=== PATIENT | female | born 1940 | race African-American/Black ===

== ENCOUNTER 2018-12-28 18:51 | Emergency (ER) | payer OTHER ==
--- NOTE | 2018-12-28 19:00 | PDOC ---
Rapid Medical Evaluation Time Seen by Provider: 12/28/18 18:53 Medical Evaluation: 12/28/18 18:57 CC: chest and upper abdominal pain x3 days PE: epigastric and LUQ tenderness Orders: cardiac w/u Patient to proceed to ER for evaluation. Discharge Disposition - Diagnosis Epigastric pain - Referrals - Patient Instructions - Post Discharge Activity
[2018-12-28 19:09] VITALS: BMI 25.0
--- NOTE | 2018-12-28 20:03 | PDOC ---
Attending Attestation - Resident Resident Name: Bassem Schmidtth - ED Attending Attestation I have performed the following: I have examined & evaluated the patient, The case was reviewed & discussed with the resident, I agree w/resident's findings & plan - HPI HPI: 12/29/18 02:10 see resident hpi - Physicial Exam PE: 12/29/18 02:10 agree with resident exam - Medical Decision Making 12/29/18 02:10 78 yo female with b/l flank pain labs and CT suggest UTI, possible early pylonephritis rocephin given in ED, d/c with keflex daughter at bedside also given instructions to return for fever, vomiting, other gibbons follow up with pcp
[2018-12-28] MEDS ORDERED: FAMOTIDINE 20 MG/50 ML IVPB 20 MG/50 ML MG IVPB ONE ×2 (20:21→20:38)
[2018-12-28] MEDS ORDERED: ACETAMINOPHEN 1000 MG/100 ML VIAL (NON FORMULARY) IVPB ONE (20:21)
[2018-12-28] MEDS ORDERED: SODIUM CHLORIDE 1,000 ML IV STA (20:21)
[2018-12-28] MEDS ORDERED: ONDANSETRON 4 MG/2 ML VIAL IVPUSH ONE (20:21)
--- NOTE | 2018-12-28 20:23 | PDOC ---
History of Present Illness - General Chief Complaint: Pain, Acute Stated Complaint: CHEST PAIN Time Seen by Provider: 12/28/18 18:53 Past History - Past Medical History Allergies/Adverse Reactions: Allergies Allergy/AdvReac Type Severity Reaction Status Date / Time No Known Allergies Allergy Verified 12/28/18 19:06 Home Medications: Ambulatory Orders Amlodipine Besylate [Norvasc -] 10 mg .ROUTE DAILY 12/28/18 Amlodipine Besylate [Norvasc -] 10 mg PO DAILY 12/28/18 Atorvastatin Calcium [Lipitor] 20 mg PO DAILY 12/28/18 Insulin (Levemir) [Levemir Vial] 8 unit SQ DAILY 12/28/18 Lisinopril [Prinivil] 10 mg PO DAILY 12/28/18 metFORMIN HCL [Glucophage -] 850 mg PO DAILY 12/28/18 Cephalexin [Keflex] 500 mg PO BID #10 capsule 12/29/18 COPD: No Diabetes: Yes GI Disorders: Yes (gastritis) HTN: Yes - Psycho Social/Smoking Cessation Hx Smoking History: Never smoked Information on smoking cessation initiated: No Hx Alcohol Use: No Drug/Substance Use Hx: No *Physical Exam - Vital Signs Last Vital Signs Temp Pulse Resp BP Pulse Ox 97.9 F 69 22 H 130/70 98 12/28/18 19:00 12/28/18 19:00 12/28/18 19:00 12/28/18 19:00 12/28/18 19:00 ED Treatment Course - LABORATORY CBC & Chemistry Diagram: 12/28/18 21:05 12/28/18 21:05 Medical Decision Making - Medical Decision Making HPI: 78yo F with PMH of HTN, DM, gastritis, uterine prolapse presenting with pain since yesterday. When asked where her pain is, she points to her bilateral lower ribs. Patient's daughter is at the bedside providing collateral history. The daughter states this pain is consistent with patient's gastritis. Patient was taken off omeprazole one month ago upon instructions from her physician. She had an endoscopy/colonoscopy in August which were "normal." Patient was given maalox and tylenol yesterday with relief, but did not have relief today. Had an episode of diarrhea yesterday and a normal formed brown stool without blood today. Endorsing some nausea, but no vomiting. Eating makes her pain worse. Has had dysuria since Thursday. No hemoptysis, no recent surgical history, no recent immobilization, no hormone use, no history of DVT or PE. No fevers or chills. PCP: Dr. Zheng (spelling? in [place]) ROS: Constitutional: no fever, no chills HEENT: no throat pain, no dysphagia Cardiovascular: +bilateral lower rib pain, no palpitations Respiratory: no cough, no shortness of breath Gastrointestinal: +abdominal pain, +nausea Genitourinary: +dysuria, no hematuria Musculoskeletal: no myalgia, no arthralgia Skin: no rash, no itching Neurologic: no headache, no weakness PE: General: Awake, alert, and fully oriented, moaning in pain Head: No signs of trauma Eyes: EOMI, sclera anicteric ENT: Moist mucus membranes Neck: Normal ROM, supple Lungs: Lungs clear, Normal breath sounds Cardio: Regular rhythm, S1 and S2 present Abdomen: Tender to palpation in epigastrium. Soft. +guarding. Surgical scar present at umbilicus. +CVA tenderness bilaterally Extremities: Normal range of motion, Distal pulses present SKIN: Warm, Dry, normal turgor Neurologic: Cranial nerves II through XII grossly intact. Normal speech ED Course/MDM: DDX including but not limited to gastritis, UTI/ pyelonephritis, ACS, PE, pancreatitis, gastroenteritis, nephrolithiasis Labs, EKG, Xray Pepcid, Zofran, Fluids, Ofirmev EKG: rate 53, QTc 367, sinus bradycardia, flattened t waves in inferior distribution, no previous EKGs 12/28/18 20:22 CXR as read by radiology: "2 views of the chest were submitted. There are no prior studies for comparison. There is a large heart, unfolded aorta, elevated right hemidiaphragm, degenerative changes and some minimal atelectasis at the left base. There is some wedging of vertebral bodies. There are no prior studies for comparison. Correlation recommended. " 12/28/18 20:35 CTAP, as ready by imaging polymerization helper: "FINDINGS: Lung bases are clear other than mild basilar ateclectasis. The visualized cardiac chambers are normal size and configuration. There are punctate bilateral renal stones and/or vascular calcifications of hydronephrosis or perinephric inflammation. Normal unenhanced liver, gallbladder, pancreas, spleen, adrenal glands . The stomach and abdominal small and large bowel are normal. There is no aortic aneurysm. There is no significant retroperitoneal lymphadenopathy. Small fat-containing umbilical hernia is noted. The pelvic small and large bowel are normal. The appendix is normal. The uterus and adnexal structures are normal. Urinary bladder is unremarkable. There is no pelvic free fluid. No discrete pelvic lymphadenopathy is identified. Bilateral calcified gluteal injection granulomas in the IMPRESSION: No definite evidence of acute pathology. Punctate bilateral nonobstructing renal stones and/or vascular calcifications." 12/29/18 00:10 Keflex sent to pharmacy GI referral as patient recently moved from [place] and does not have a GI specialist here Discharged with return precautions Discharge - Discharge Information Problems reviewed: Yes Clinical Impression/Diagnosis: Epigastric pain Disposition: HOME - Additional Discharge Information Prescriptions: Cephalexin [Keflex] 500 mg PO BID #10 capsule - Follow up/Referral Referrals: Wesley Mak DO [Staff Physician] - - Patient Discharge Instructions Patient Printed Discharge Instructions: DI for Urinary Tract Infection (UTI) Additional Instructions: You came into the emergency department for abdominal pain. Labs did not indicate acute pathology. CT scan did not indicate acute pathology. Urinalysis showed that you have a urinary tract infection. Prescription sent to your pharmacy. Take as instructed. Make sure you drink plenty of water to keep well hydrated. You can take [id number] tylenol as needed for pain. Follow the instructions on the medication bottle. You have been referred to a GI specialist for further evaluation of your pain. Call and make an appointment at the number provided. Your workup is not complete until you do so. Follow-up with a primary care provider within 72 hours to discuss this ED visit and to further evaluate your symptoms. Your workup is not complete until you do so. Call and make an appointment at the number provided. Immediate medical attention is required if you develop: worsening pain, high fevers, persistent nausea, vomiting, or any new or concerning symptoms. If you think you are having an emergency, call for emergency medical services or present to the emergency department right away. - Post Discharge Activity
[2018-12-28] MEDS ORDERED: ACETAMINOPHEN INJECTION 100 ML IVPB ONE (20:37)
[2018-12-28] MEDS ORDERED: ONDANSETRON 4 MG/2 ML VIAL ONE (20:37)
[2018-12-28 20:54] LABS: EPI CELLS 8.3 /HPF (0-5/HPF); HYALINE CASTS 4 /lpf (0-8); URINE APPEARANCE CLEAR; URINE BACTERIA 567.7 /hpf (NEGATIVE); URINE BILIRUBIN NEGATIVE (NEGATIVE); URINE COLOR YELLOW; URINE GLUCOSE (UA) TRACE (NEGATIVE); URINE KETONE NEGATIVE (NEGATIVE); URINE LEUK ESTERASE TRACE (NEGATIVE); URINE NITRITE NEGATIVE (NEGATIVE); URINE PROTEIN NEGATIVE (NEGATIVE); URINE RBC 1 /hpf (0-4); URINE UROBILINOGEN 0.2 mg/dL (0.2-1.0); URINE WBC 3 /hpf (0-5)
[2018-12-28 21:18] LABS: BASO % 0.5 % (0-2.0); EOS % 0.9 % (0-4.5); HEMATOCRIT 41.1 % (32.4-45.2); LYMPH % 54.5 % (8-40); MCH 25.6 pg (25.7-33.7); MCHC 31.7 g/dl (32.0-36.0); MEAN CELL VOLUME 80.7 fl (80-96); MEAN PLT VOLUME 9.3 fl (7.5-11.1); MONO % 8.8 % (3.8-10.2); NEUT % 35.3 % (42.8-82.8); PLATELET COUNT 188 K/MM3 (134-434); RDW 15.9 % (11.6-15.6); WHITE BLOOD COUNT 6.6 K/mm3 (4.0-10.0)
[2018-12-28 21:57] LABS: INR 0.94 (0.83-1.09); PROTHROMBIN TIME (PATIENT) 11.1 SEC (9.7-13.0)
[2018-12-28 21:58] LABS: ALBUMIN 3.8 g/dl (3.4-5.0); BILIRUBIN,TOTAL 0.4 mg/dL (0.2-1); CALCIUM 9.4 mg/dL (8.5-10.1); CREATININE 0.8 mg/dL (0.55-1.3); POTASSIUM 4.4 mmol/L (3.5-5.1); TOT PROT 7.3 g/dl (6.4-8.2)
[2018-12-28] MEDS ORDERED: CEFTRIAXONE 1,000 MG in DEXTROSE 5%-WATER - 50 ML IVPB ONE (22:43)
[2018-12-28] MEDS ORDERED: CEFTRIAXONE 1 GM/50 ML BAG ONE (23:01)
[2018-12-29 01:11] VITALS: BP 125/63; PULSE 59; TEMP 98.6
--- NOTE | 2018-12-29 11:31 | EKG ---
Test Reason : Blood Pressure : / mmHG Vent. Rate : 053 BPM Atrial Rate : 053 BPM P-R Int : 176 ms QRS Dur : 080 ms QT Int : 392 ms P-R-T Axes : 061 020 170 degrees QTc Int : 367 ms SINUS BRADYCARDIA T WAVE ABNORMALITY, CONSIDER LATERAL ISCHEMIA ABNORMAL ECG NO PREVIOUS ECGS AVAILABLE Confirmed by SERGE DAVIS, OMARI ([id number]) on 12/29/2018 11:31:04 AM Referred By: Confirmed By:OMARI VALENTINE MD
== END 2018-12-29 01:20 | disposition home or self-care (01) ==
LOC: JER 18:51
PROC: 3E03329 Introduction of Other Anti-infective into Peripheral Vein, Percutaneous Approach (ICD-10-PCS; principal; 2018-12-28)
PROC: 3E033GC Introduction of Other Therapeutic Substance into Peripheral Vein, Percutaneous Approach (ICD-10-PCS; 2018-12-28)
PROC: 3E0337Z Introduction of Electrolytic and Water Balance Substance into Peripheral Vein, Percutaneous Approach (ICD-10-PCS; 2018-12-28)
DX: R10.13 Epigastric pain (principal); I10 Essential (primary) hypertension; E11.9 Type 2 diabetes mellitus without complications; N81.4 Uterovaginal prolapse, unspecified
CPT/HCPCS: 36415; 71046-TC-FY; 74176-TC; 80053; 81003; 82550; 83690; 83735; 84484; 85025; 85610; 93005; 93010; 96361; 96365; 96375; 99284-25; J0131; J7030

== ENCOUNTER 2021-10-08 16:04 | Emergency (ER) | payer OTHER ==
[2021-10-08 16:36] VITALS: TEMP 98.4; BMI 25.2
[2021-10-08] MEDS ORDERED: FAMOTIDINE 20 MG/50 ML IVPB 20 MG/50 ML MG IVPB ONE ×2 (18:32→19:17)
[2021-10-08] MEDS ORDERED: MAG HYDROX/AL HYDROX/SIMETH 30 ML UNIT-DOSE CUP PO ONE (18:47)
[2021-10-08] MEDS ORDERED: ACETAMINOPHEN 1000 MG/100 ML BAG IVPB ONE (19:05)
[2021-10-08] MEDS ORDERED: MAG HYDROX/AL HYDROX/SIMETH 30 ML UNIT-DOSE CUP ONE (19:17)
[2021-10-08] MEDS ORDERED: ACETAMINOPHEN INJECTION 100 ML IVPB ONE (19:17)
[2021-10-08 19:23] LABS: BASO % 0.6 % (0-2.0); EOS % 1.2 % (0-4.5); HEMATOCRIT 40.4 % (32.4-45.2); HEMOGLOBIN 12.6 GM/dL (10.7-15.3); MCH 24.4 pg (25.7-33.7); MCHC 31.2 g/dl (32.0-36.0); MEAN CELL VOLUME 78.2 fl (80-96); MEAN PLT VOLUME 8.8 fl (7.5-11.1); MONO % 11.2 % (3.8-10.2); PLATELET COUNT 292 10^3/uL (134-434); RBC 5.17 M/mm3 (3.60-5.2); RDW 16.6 % (11.6-15.6); WHITE BLOOD COUNT 7.5 K/mm3 (4.0-10.0)
[2021-10-08 19:50] LABS: ALBUMIN 3.7 g/dl (3.4-5.0); BLOOD UREA NITROGEN 15.8 mg/dL (7-18); CALCIUM 9.5 mg/dL (8.5-10.1)
[2021-10-08 19:52] LABS: CREATININE 0.7 mg/dL (0.55-1.3)
[2021-10-08 19:54] LABS: BILIRUBIN,TOTAL 0.4 mg/dL (0.2-1)
[2021-10-08 23:25] VITALS: BP 136/71; PULSE 53
== END 2021-10-08 23:25 | disposition home or self-care (01) ==
LOC: JER 16:04
PROC: 3E033GC Introduction of Other Therapeutic Substance into Peripheral Vein, Percutaneous Approach (ICD-10-PCS; principal; 2021-10-08)
DX: R10.84 Generalized abdominal pain (principal); K21.9 Gastro-esophageal reflux disease without esophagitis
CPT/HCPCS: 36415; 76705-TC; 80053; 83690; 84484; 85025; 93005; 93010; 99285-25

== ENCOUNTER 2021-12-06 19:30 | Inpatient (IN) | payer OTHER ==
[2021-12-06] MEDS ORDERED: ACETAMINOPHEN 1000 MG/100 ML BAG IVPB ONE (20:44)
[2021-12-06] MEDS ORDERED: MAG HYDROX/AL HYDROX/SIMETH -MYLANTA- ORAL SUSPENSION PO ONE (20:44)
[2021-12-06] MEDS ORDERED: FAMOTIDINE 20 MG/50 ML IVPB 20 MG/50 ML MG IVPB ONE ×2 (20:44→21:20)
[2021-12-06] MEDS ORDERED: ACETAMINOPHEN INJECTION 100 ML IVPB ONE (21:19)
[2021-12-06 21:42] LABS: BASO % 0.6 % (0-2.0); EOS % 1.5 % (0-4.5); HEMATOCRIT 38.1 % (32.4-45.2); HEMOGLOBIN 12.4 GM/dL (10.7-15.3); LYMPH % 49.9 % (8-40); MCHC 32.5 g/dl (32.0-36.0); MEAN CELL VOLUME 76.9 fl (80-96); MEAN PLT VOLUME 8.3 fl (7.5-11.1); MONO % 11.3 % (3.8-10.2); NEUT % 36.7 % (42.8-82.8); PLATELET COUNT 213 10^3/uL (134-434); RBC 4.95 M/mm3 (3.60-5.2); RDW 17.9 % (11.6-15.6); WHITE BLOOD COUNT 6.1 K/mm3 (4.0-10.0)
[2021-12-06 22:02] LABS: ALBUMIN 3.3 g/dl (3.4-5.0); BLOOD UREA NITROGEN 16.3 mg/dL (7-18); CALCIUM 9.2 mg/dL (8.5-10.1)
[2021-12-06 22:05] LABS: CREATININE 0.7 mg/dL (0.55-1.3)
[2021-12-06] MEDS ORDERED: MAG HYDROX/AL HYDROX/SIMETH 30 ML UNIT-DOSE CUP ONE (22:05)
[2021-12-06 22:07] LABS: BILIRUBIN,TOTAL 0.3 mg/dL (0.2-1); TOT PROT 7.2 g/dl (6.4-8.2)
[2021-12-06 23:25] LABS: PH,URINE 7.5 (5.0-8.0); URINE APPEARANCE CLEAR; URINE BILIRUBIN NEGATIVE (NEGATIVE); URINE COLOR YELLOW; URINE GLUCOSE (UA) NEGATIVE (NEGATIVE); URINE KETONE NEGATIVE (NEGATIVE); URINE LEUK ESTERASE NEGATIVE (NEGATIVE); URINE NITRITE NEGATIVE (NEGATIVE); URINE PROTEIN NEGATIVE (NEGATIVE); URINE UROBILINOGEN 0.2 mg/dL (0.2-1.0)
[2021-12-07] MEDS ORDERED: morphine CARPU-JECT 4 MG/1 ML DISP.SYRIN IVPUSH ONE (00:28)
[2021-12-07] MEDS ORDERED: morphine SULFATE 4 MG/ML VIAL ONE (02:44)
[2021-12-07] MEDS ORDERED: ACETAMINOPHEN 1000 MG/100 ML BAG IVPB PRN ×2 (03:37→04:05)
[2021-12-07 04:41] VITALS: BMI 25.9
[2021-12-07] MEDS: INSULIN SLIDING SCALE (NOVOLOG) 1 VIAL SQ SCH ×5 (06:02→21:49)
[2021-12-07 09:10] LABS: BASO % 0.6 % (0-2.0); EOS % 1.1 % (0-4.5); HEMATOCRIT 40.9 % (32.4-45.2); HEMOGLOBIN 12.8 GM/dL (10.7-15.3); LYMPH % 37.3 % (8-40); MCH 24.4 pg (25.7-33.7); MCHC 31.4 g/dl (32.0-36.0); MEAN CELL VOLUME 77.7 fl (80-96); MEAN PLT VOLUME 9.2 fl (7.5-11.1); MONO % 11.6 % (3.8-10.2); NEUT % 49.4 % (42.8-82.8); PLATELET COUNT 216 10^3/uL (134-434); RBC 5.26 M/mm3 (3.60-5.2); RDW 18.2 % (11.6-15.6); WHITE BLOOD COUNT 5.6 K/mm3 (4.0-10.0)
[2021-12-07 09:40] LABS: CALCIUM 9.7 mg/dL (8.5-10.1)
[2021-12-07 09:41] LABS: ALBUMIN 3.7 g/dl (3.4-5.0); MAGNESIUM 2.2 mg/dL (1.8-2.4)
[2021-12-07 09:43] LABS: PHOSPHOROUS 2.7 mg/dL (2.5-4.9)
[2021-12-07 09:44] LABS: CREATININE 0.8 mg/dL (0.55-1.3)
[2021-12-07] MEDS: ENOXAPARIN NA (PORCINE) 40 MG/0.4 ML DISP.SYRIN SQ SCH (09:44)
[2021-12-07 09:45] LABS: BILIRUBIN,TOTAL 0.7 mg/dL (0.2-1); TOT PROT 7.7 g/dl (6.4-8.2)
[2021-12-07] MEDS: LISINOPRIL 10 MG TABLET PO SCH (09:45)
[2021-12-07] MEDS: PANTOPRAZOLE SODIUM 40 MG VIAL IVPUSH SCH (09:45)
[2021-12-07] MEDS: amLODIPine BESYLATE 10 MG TABLET (FP) PO SCH (09:45)
[2021-12-07] MEDS ORDERED: SUCRALFATE 1 GM TABLET (FP) PO SCH (10:00)
[2021-12-07] MEDS ORDERED: PANTOPRAZOLE 40 MG TABLET PO SCH (10:00)
[2021-12-07] MEDS ORDERED: GABAPENTIN 100 MG CAPSULE PO SCH (22:00)
[2021-12-07] MEDS ORDERED: ATORVASTATIN CA 10 MG TABLET (FP) PO SCH (22:00)
[2021-12-08] MEDS: INSULIN SLIDING SCALE (NOVOLOG) 1 VIAL SQ SCH ×2 (06:41→11:21)
[2021-12-08 09:04] VITALS: RESP 18
[2021-12-08] MEDS: ENOXAPARIN NA (PORCINE) 40 MG/0.4 ML DISP.SYRIN SQ SCH (09:35)
[2021-12-08] MEDS: LISINOPRIL 10 MG TABLET PO SCH (09:35)
[2021-12-08] MEDS: PANTOPRAZOLE SODIUM 40 MG VIAL IVPUSH SCH (09:35)
[2021-12-08] MEDS: amLODIPine BESYLATE 10 MG TABLET (FP) PO SCH (09:35)
[2021-12-08 13:10] LABS: BASO % 0.5 % (0-2.0); EOS % 2.3 % (0-4.5); HEMATOCRIT 42.4 % (32.4-45.2); HEMOGLOBIN 13.5 GM/dL (10.7-15.3); LYMPH % 48.8 % (8-40); MCH 24.5 pg (25.7-33.7); MCHC 31.8 g/dl (32.0-36.0); MEAN PLT VOLUME 9.7 fl (7.5-11.1); MONO % 10.3 % (3.8-10.2); NEUT % 38.1 % (42.8-82.8); PLATELET COUNT 247 10^3/uL (134-434); RBC 5.51 M/mm3 (3.60-5.2); RDW 17.9 % (11.6-15.6); WHITE BLOOD COUNT 5.8 K/mm3 (4.0-10.0)
[2021-12-08 13:25] LABS: ALBUMIN 3.5 g/dl (3.4-5.0); BLOOD UREA NITROGEN 18.8 mg/dL (7-18); CALCIUM 9.4 mg/dL (8.5-10.1)
[2021-12-08 13:29] LABS: CREATININE 0.8 mg/dL (0.55-1.3)
[2021-12-08 13:30] LABS: BILIRUBIN,TOTAL 0.5 mg/dL (0.2-1); TOT PROT 7.6 g/dl (6.4-8.2)
[2021-12-08 14:15] VITALS: BP 112/74; PULSE 52; TEMP 98.8
== END 2021-12-08 14:59 | disposition home or self-care (01) | DRG 241 ==
LOC: JER 19:30 → JERBED 12-07 01:44 → J7W 12-07 04:10
PROVIDERS: ADMIT Internal Medicine; ATTEND Internal Medicine
DX: K29.60 Other gastritis without bleeding (principal); K21.9 Gastro-esophageal reflux disease without esophagitis; I10 Essential (primary) hypertension; E11.9 Type 2 diabetes mellitus without complications; E78.5 Hyperlipidemia, unspecified; R19.00 Intra-abdominal and pelvic swelling, mass and lump, unspecified site
CPT/HCPCS: 36415; 71045-TC-FY; 72192-TC; 74177-TC; 76705-TC; 80053; 81003; 82272; 82962; 83690; 83735; 84100; 84484; 85025; 87086; 87338; 93005; 93010; 99285-25; C9803-CS; Q9967; U0003; U0005

== ENCOUNTER 2022-05-15 10:50 | Emergency (ER) | payer OTHER ==
[2022-05-15 11:02] VITALS: RESP 18; BMI 27.3
[2022-05-15] MEDS ORDERED: ONDANSETRON 4 MG/2 ML VIAL IVPUSH ONE (11:41)
[2022-05-15] MEDS ORDERED: ACETAMINOPHEN 1000 MG/100 ML BAG IVPB ONE (11:41)
[2022-05-15] MEDS ORDERED: SODIUM CHLORIDE 0.9% 500 ML INFUS.BAG IV ONE (11:41)
[2022-05-15] MEDS ORDERED: ONDANSETRON 4 MG/2 ML VIAL ONE (12:19)
[2022-05-15] MEDS ORDERED: ACETAMINOPHEN INJECTION 100 ML IVPB ONE (12:19)
[2022-05-15] MEDS ORDERED: FAMOTIDINE 20 MG/50 ML IVPB 20 MG/50 ML MG IVPB ONE (12:32)
[2022-05-15] MEDS ORDERED: FAMOTIDINE 10 MG/ML VIAL IVPB ONE (12:41)
[2022-05-15 12:55] LABS: BASO % 0.5 % (0-2.0); EOS % 1.5 % (0-4.5); HEMATOCRIT 38.8 % (32.4-45.2); HEMOGLOBIN 12.6 GM/dL (10.7-15.3); LYMPH % 38.5 % (8-40); MCH 25.6 pg (25.7-33.7); MCHC 32.4 g/dl (32.0-36.0); MONO % 12.1 % (3.8-10.2); NEUT % 47.4 % (42.8-82.8); PLATELET COUNT 256 10^3/uL (134-434); RBC 4.91 M/mm3 (3.60-5.2)
[2022-05-15 13:11] LABS: CHLORIDE 106 mmol/L (98-107); SODIUM 137 mmol/L (136-145)
[2022-05-15 13:12] LABS: ALBUMIN 3.4 g/dl (3.4-5.0); BLOOD UREA NITROGEN 10.7 mg/dL (7-18); CALCIUM 9.3 mg/dL (8.5-10.1); CO2 27 mmol/L (21-32); GLUCOSE,RANDOM 112 mg/dL (74-106); LIPASE 116 U/L (73-393)
[2022-05-15 13:14] LABS: MAGNESIUM 2.2 mg/dL (1.8-2.4)
[2022-05-15 13:15] LABS: CREATININE 0.8 mg/dL (0.55-1.3); SGOT/AST 49 U/L (15-37); SGPT/ALT 23 U/L (13-61)
[2022-05-15 13:17] LABS: BILIRUBIN,TOTAL 0.6 mg/dL (0.2-1); TOT PROT 7.5 g/dl (6.4-8.2)
[2022-05-15 13:19] LABS: ALK PHOS 59 U/L (45-117)
[2022-05-15 13:25] VITALS: BP 126/61; PULSE 55; TEMP 98
[2022-05-15 13:25] LABS: LACTIC ACID 2.2 mmol/L (0.4-2.0)
[2022-05-15 13:27] LABS: ANION GAP 4 MMOL/L (8-16)
[2022-05-15 15:15] LABS: CALCIUM 8.3 mg/dL (8.5-10.1)
[2022-05-15 15:16] LABS: BLOOD UREA NITROGEN 8.6 mg/dL (7-18)
[2022-05-15 15:18] LABS: CREATININE 0.6 mg/dL (0.55-1.3)
== END 2022-05-15 19:30 | disposition home or self-care (01) ==
LOC: JER 10:50
PROC: 3E0333Z Introduction of Anti-inflammatory into Peripheral Vein, Percutaneous Approach (ICD-10-PCS; principal; 2022-05-15)
PROC: 3E033GC Introduction of Other Therapeutic Substance into Peripheral Vein, Percutaneous Approach (ICD-10-PCS; 2022-05-15)
PROC: 3E033GC Introduction of Other Therapeutic Substance into Peripheral Vein, Percutaneous Approach (ICD-10-PCS; 2022-05-15)
DX: R53.1 Weakness (principal); R10.13 Epigastric pain
CPT/HCPCS: 0241U-QW; 36415; 71045-TC-FY; 74177-TC; 80048; 80053; 83605; 83690; 83735; 84484; 85025; 93005; 93010; 99285-25; Q9967

== ENCOUNTER 2022-08-21 23:04 | Inpatient (IN) | payer OTHER ==
[2022-08-22 00:29] LABS: BASO % 0.3 % (0-2.0); EOS % 1.6 % (0-4.5); HEMATOCRIT 41.7 % (32.4-45.2); HEMOGLOBIN 13.4 GM/dL (10.7-15.3); LYMPH % 35.3 % (8-40); MCH 24.9 pg (25.7-33.7); MCHC 32.1 g/dl (32.0-36.0); MEAN CELL VOLUME 77.6 fl (80-96); MONO % 8.2 % (3.8-10.2); NEUT % 54.6 % (42.8-82.8); PLATELET COUNT 259 10^3/uL (134-434); RBC 5.38 M/mm3 (3.60-5.2); RDW 16.2 % (11.6-15.6); WHITE BLOOD COUNT 7.7 K/mm3 (4.0-10.0)
[2022-08-22 00:37] LABS: INR 0.97 (0.83-1.09); PROTHROMBIN TIME (PATIENT) 11.3 SEC (9.7-13.0)
[2022-08-22] MEDS ORDERED: METOCLOPRAMIDE HCL INJECTION 10 MG/2 ML VIAL IVPUSH ONE (00:39)
[2022-08-22] MEDS ORDERED: ACETAMINOPHEN 325 MG TABLET (FP) PO ONE (00:39)
[2022-08-22] MEDS ORDERED: SODIUM CHLORIDE 0.9% 1000 ML INFUS.BAG IV ONE (00:39)
[2022-08-22 00:45] LABS: POTASSIUM 4.4 mmol/L (3.5-5.1)
[2022-08-22 00:47] LABS: CALCIUM 10.3 mg/dL (8.5-10.1)
[2022-08-22 00:48] LABS: ALBUMIN 3.9 g/dl (3.4-5.0); BLOOD UREA NITROGEN 12.2 mg/dL (7-18)
[2022-08-22 00:51] LABS: CREATININE 0.7 mg/dL (0.55-1.3)
[2022-08-22 00:53] LABS: BILIRUBIN,TOTAL 0.4 mg/dL (0.2-1); TOT PROT 8.4 g/dl (6.4-8.2)
[2022-08-22 01:20] LABS: LACTIC ACID 2.3 mmol/L (0.4-2.0)
[2022-08-22] MEDS ORDERED: ACETAMINOPHEN 325 MG TABLET (FP) ONE (01:48)
[2022-08-22] MEDS ORDERED: METOCLOPRAMIDE HCL INJECTION 10 MG/2 ML VIAL ONE (01:48)
[2022-08-22 01:52] LABS: URINE APPEARANCE CLEAR; URINE BILIRUBIN NEGATIVE (NEGATIVE); URINE COLOR YELLOW; URINE GLUCOSE (UA) NEGATIVE (NEGATIVE); URINE KETONE NEGATIVE (NEGATIVE); URINE LEUK ESTERASE NEGATIVE (NEGATIVE); URINE NITRITE NEGATIVE (NEGATIVE); URINE PROTEIN NEGATIVE (NEGATIVE); URINE UROBILINOGEN 0.2 mg/dL (0.2-1.0)
[2022-08-22 06:21] LABS: ARTERIAL BLD GAS O2 SATURATION 97.9 % (95-98); ARTERIAL BLOOD GAS BASE EXCESS -1.6 mmol/L (-2-2); ARTERIAL BLOOD GAS PO2 105.1 mmHg (80-100); ARTERIAL BLOOD GAS pH 7.408 (7.350-7.450)
[2022-08-22] MEDS ORDERED: ACETAMINOPHEN 325 MG TABLET (FP) PO PRN (09:02)
[2022-08-22] MEDS ORDERED: INSULIN (NOVOLOG) ASPART 100 UNITS/ML 10ML VIAL ONE ×2 (11:11→21:38)
[2022-08-22] MEDS: amLODIPine BESYLATE 10 MG TABLET (FP) PO SCH (11:41)
[2022-08-22] MEDS: ENOXAPARIN NA (PORCINE) 40 MG/0.4 ML DISP.SYRIN SQ SCH (11:41)
[2022-08-22] MEDS: PANTOPRAZOLE 40 MG TABLET PO SCH (11:41)
[2022-08-22] MEDS: INSULIN (LEVEMIR) 100 UNITS/ML UNITS SQ SCH ×2 (11:41→22:28)
[2022-08-22] MEDS: TIMOLOL 0.5% OPHTHALMIC SOL 5 ML BOTTLE OU SCH ×2 (11:42→22:30)
[2022-08-22] MEDS: INSULIN SLIDING SCALE (NOVOLOG) 1 VIAL SQ SCH ×3 (11:44→22:28)
[2022-08-22 14:53] VITALS: BMI 24.3
[2022-08-22] MEDS: DORZOLAMIDE 2% HCL OPHTHALMIC SOLUTION 10 ML BOTTLE OU SCH ×2 (15:00→22:30)
[2022-08-22] MEDS: ATORVASTATIN CA 10 MG TABLET (FP) PO SCH (22:29)
[2022-08-22] MEDS: LATANOPROST 0.005% OPHTH SOLN 2.5ML BOTTLE OU SCH (22:30)
[2022-08-22] MEDS: LISINOPRIL 10 MG TABLET PO SCH (22:30)
[2022-08-23] MEDS: DORZOLAMIDE 2% HCL OPHTHALMIC SOLUTION 10 ML BOTTLE OU SCH ×3 (05:45→22:08)
[2022-08-23] MEDS: INSULIN SLIDING SCALE (NOVOLOG) 1 VIAL SQ SCH ×4 (07:02→22:12)
[2022-08-23 09:00] LABS: BASO % 0.9 % (0-2.0); EOS % 2.7 % (0-4.5); HEMOGLOBIN 13.7 GM/dL (10.7-15.3); LYMPH % 42.6 % (8-40); MCH 25.3 pg (25.7-33.7); MCHC 32.7 g/dl (32.0-36.0); MEAN CELL VOLUME 77.4 fl (80-96); MEAN PLT VOLUME 9.1 fl (7.5-11.1); MONO % 10.9 % (3.8-10.2); NEUT % 42.9 % (42.8-82.8); PLATELET COUNT 253 10^3/uL (134-434); RBC 5.42 M/mm3 (3.60-5.2); WHITE BLOOD COUNT 4.8 K/mm3 (4.0-10.0)
[2022-08-23 09:11] LABS: CALCIUM 9.9 mg/dL (8.5-10.1)
[2022-08-23 09:12] LABS: ALBUMIN 3.6 g/dl (3.4-5.0); MAGNESIUM 1.9 mg/dL (1.8-2.4)
[2022-08-23] MEDS: TIMOLOL 0.5% OPHTHALMIC SOL 5 ML BOTTLE OU SCH ×2 (09:12→22:08)
[2022-08-23] MEDS: ENOXAPARIN NA (PORCINE) 40 MG/0.4 ML DISP.SYRIN SQ SCH (09:12)
[2022-08-23] MEDS: PANTOPRAZOLE 40 MG TABLET PO SCH (09:12)
[2022-08-23] MEDS: amLODIPine BESYLATE 10 MG TABLET (FP) PO SCH (09:12)
[2022-08-23] MEDS: INSULIN (LEVEMIR) 100 UNITS/ML UNITS SQ SCH ×2 (09:13→22:06)
[2022-08-23 09:14] LABS: BLOOD UREA NITROGEN 12.1 mg/dL (7-18)
[2022-08-23 09:15] LABS: CREATININE 0.8 mg/dL (0.55-1.3); PHOSPHOROUS 3.6 mg/dL (2.5-4.9)
[2022-08-23 09:16] LABS: BILIRUBIN,TOTAL 0.6 mg/dL (0.2-1); TOT PROT 7.7 g/dl (6.4-8.2)
[2022-08-23] MEDS ORDERED: INSULIN (NOVOLOG) ASPART 100 UNITS/ML 10ML VIAL ONE ×5 (11:06→21:12)
[2022-08-23] MEDS ORDERED: INSULIN (LEVEMIR) 100 UNITS/ML UNITS SQ ONE (16:02)
[2022-08-23] MEDS: ATORVASTATIN CA 10 MG TABLET (FP) PO SCH (22:07)
[2022-08-23] MEDS: LISINOPRIL 10 MG TABLET PO SCH (22:07)
[2022-08-23] MEDS: LATANOPROST 0.005% OPHTH SOLN 2.5ML BOTTLE OU SCH (22:08)
[2022-08-24] MEDS: INSULIN SLIDING SCALE (NOVOLOG) 1 VIAL SQ SCH ×2 (07:09→12:03)
[2022-08-24] MEDS: DORZOLAMIDE 2% HCL OPHTHALMIC SOLUTION 10 ML BOTTLE OU SCH ×2 (07:09→14:29)
[2022-08-24] MEDS: PANTOPRAZOLE 40 MG TABLET PO SCH (09:36)
[2022-08-24] MEDS: amLODIPine BESYLATE 10 MG TABLET (FP) PO SCH (09:36)
[2022-08-24] MEDS: INSULIN (LEVEMIR) 100 UNITS/ML UNITS SQ SCH (09:37)
[2022-08-24] MEDS: TIMOLOL 0.5% OPHTHALMIC SOL 5 ML BOTTLE OU SCH (09:37)
[2022-08-24] MEDS: ENOXAPARIN NA (PORCINE) 40 MG/0.4 ML DISP.SYRIN SQ SCH (09:38)
[2022-08-24 11:12] VITALS: RESP 20
[2022-08-24] MEDS ORDERED: INSULIN (LEVEMIR) 100 UNITS/ML UNITS SQ ONE (11:26)
[2022-08-24 15:07] VITALS: BP 129/67; PULSE 54; TEMP 98.3
== END 2022-08-24 15:59 | disposition home or self-care (01) | DRG 864 ==
LOC: JER 23:04 → JERBED 08-22 06:43 → J7W 08-22 08:35
PROVIDERS: ADMIT Internal Medicine
DX: R50.9 Fever, unspecified (principal); E87.20 Acidosis, unspecified; A00-B99 Certain infectious and parasitic diseases; E78.5 Hyperlipidemia, unspecified; I10 Essential (primary) hypertension; E11.9 Type 2 diabetes mellitus without complications; H40.9 Unspecified glaucoma
CPT/HCPCS: 0241U-QW; 36415; 36600; 71045-TC-FY; 80053; 81003; 82803; 82962; 83605; 83735; 84100; 84443; 84484; 85025; 85610; 85651; 85730; 86140; 86480; 86618; 86666; 86790; 86850; 86900; 86901; 87040; 87086; 87207; 93005; 93010; 93970-TC; 97116-GP; 97161-GP; 99285-25

== ENCOUNTER 2023-06-25 18:59 | Emergency (ER) | payer OTHER ==
[2023-06-25 19:07] VITALS: BP 150/65; PULSE 72; RESP 22; TEMP 98.8; BMI 27.3
[2023-06-25] MEDS ORDERED: ACETAMINOPHEN INJECTION 100 ML IVPB ONE (20:12)
[2023-06-25] MEDS ORDERED: FAMOTIDINE 20 MG/50 ML IVPB 20 MG/50 ML MG IVPB ONE (20:12)
[2023-06-25] MEDS ORDERED: ONDANSETRON 4 MG/2 ML VIAL ONE (20:12)
[2023-06-25] MEDS: LACTATED RINGERS SOLUTION 1000 ML INFUS.BAG IV ONE (20:33)
[2023-06-25] MEDS: ACETAMINOPHEN 1000 MG/100 ML BAG IVPB ONE (20:33)
[2023-06-25 20:39] LABS: BASO % 0.5 % (0-2.0); EOS % 0.6 % (0-4.5); HEMATOCRIT 39.1 % (32.4-45.2); HEMOGLOBIN 12.5 GM/dL (10.7-15.3); LYMPH % 24.8 % (8-40); MCH 25.3 pg (25.7-33.7); MCHC 31.9 g/dl (32.0-36.0); MEAN CELL VOLUME 79.3 fl (80-96); MEAN PLT VOLUME 9.2 fl (7.5-11.1); MONO % 10.9 % (3.8-10.2); NEUT % 63.2 % (42.8-82.8); PLATELET COUNT 235 10^3/uL (134-434); RBC 4.93 M/mm3 (3.60-5.2); WHITE BLOOD COUNT 10.8 K/mm3 (4.0-10.0)
[2023-06-25 20:48] LABS: INR 0.98 (0.83-1.09); PROTHROMBIN TIME (PATIENT) 11.4 SEC (9.7-13.0)
[2023-06-25 20:50] LABS: ACTIVATED PTT 31.8 SECONDS (25.2-36.5)
[2023-06-25] MEDS: ONDANSETRON 4 MG/2 ML VIAL IVPUSH ONE (21:00)
[2023-06-25 21:03] LABS: POTASSIUM 3.8 mmol/L (3.5-5.1)
[2023-06-25 21:05] LABS: CALCIUM 9.6 mg/dL (8.5-10.1)
[2023-06-25] MEDS: FAMOTIDINE 20 MG/50 ML IVPB 20 MG/50 ML MG IVPB ONE (21:05)
[2023-06-25 21:06] LABS: ALBUMIN 3.4 g/dl (3.4-5.0); BLOOD UREA NITROGEN 11.9 mg/dL (7-18); MAGNESIUM 1.8 mg/dL (1.8-2.4)
[2023-06-25 21:08] LABS: CREATININE 0.7 mg/dL (0.55-1.3)
[2023-06-25 21:10] LABS: BILIRUBIN,TOTAL 0.4 mg/dL (0.2-1); TOT PROT 7.4 g/dl (6.4-8.2)
[2023-06-25 21:39] LABS: URINE APPEARANCE CLEAR; URINE BILIRUBIN NEGATIVE (NEGATIVE); URINE COLOR YELLOW; URINE GLUCOSE (UA) NEGATIVE (NEGATIVE); URINE KETONE NEGATIVE (NEGATIVE); URINE LEUK ESTERASE NEGATIVE (NEGATIVE); URINE NITRITE NEGATIVE (NEGATIVE); URINE PROTEIN NEGATIVE (NEGATIVE); URINE UROBILINOGEN 0.2 mg/dL (0.2-1.0)
== END 2023-06-25 22:19 | disposition home or self-care (01) ==
LOC: JER 18:59
PROC: 3E033GC Introduction of Other Therapeutic Substance into Peripheral Vein, Percutaneous Approach (ICD-10-PCS; principal; 2023-06-25)
PROC: 3E030NZ Introduction of Analgesics, Hypnotics, Sedatives into Peripheral Vein, Open Approach (ICD-10-PCS; 2023-06-25)
PROC: 3E030GC Introduction of Other Therapeutic Substance into Peripheral Vein, Open Approach (ICD-10-PCS; 2023-06-25)
DX: R10.814 Left lower quadrant abdominal tenderness (principal); G89.29 Other chronic pain; R11.0 Nausea; R07.9 Chest pain, unspecified; J02.9 Acute pharyngitis, unspecified; R30.0 Dysuria; Z20.822 Contact with and (suspected) exposure to COVID-19
CPT/HCPCS: 0241U-QW; 36415; 71045-TC-FY; 80053; 81003; 83605; 83690; 83735; 84484; 85025; 85610; 85730; 87070; 87086; 87651; 93005; 93010; 99285-25; J0131

== ENCOUNTER 2023-08-31 15:02 | Emergency (ER) | payer OTHER ==
[2023-08-31 15:24] VITALS: BMI 27.1
[2023-08-31 16:29] LABS: PH,URINE 8.5 (5.0-8.0); URINE APPEARANCE CLEAR; URINE BILIRUBIN NEGATIVE (NEGATIVE); URINE COLOR YELLOW; URINE GLUCOSE (UA) NEGATIVE (NEGATIVE); URINE KETONE TRACE (NEGATIVE); URINE LEUK ESTERASE NEGATIVE (NEGATIVE); URINE NITRITE NEGATIVE (NEGATIVE); URINE PROTEIN NEGATIVE (NEGATIVE); URINE UROBILINOGEN 0.2 mg/dL (0.2-1.0)
[2023-08-31 16:30] LABS: BASO % 0.7 % (0-2.0); EOS % 1.4 % (0-4.5); HEMATOCRIT 39.6 % (32.4-45.2); HEMOGLOBIN 12.5 GM/dL (10.7-15.3); LYMPH % 44.6 % (8-40); MCHC 31.6 g/dl (32.0-36.0); MEAN CELL VOLUME 79.2 fl (80-96); MONO % 11.5 % (3.8-10.2); NEUT % 41.8 % (42.8-82.8); PLATELET COUNT 244 10^3/uL (134-434); RBC 4.99 M/mm3 (3.60-5.2); RDW 16.5 % (11.6-15.6); WHITE BLOOD COUNT 6.4 K/mm3 (4.0-10.0)
[2023-08-31] MEDS ORDERED: METOCLOPRAMIDE HCL INJECTION 10 MG/2 ML VIAL ONE (16:33)
[2023-08-31] MEDS ORDERED: ACETAMINOPHEN INJECTION 100 ML IVPB ONE (16:38)
[2023-08-31] MEDS: METOCLOPRAMIDE HCL INJECTION 10 MG/2 ML VIAL IVPB ONE (16:43)
[2023-08-31] MEDS: SODIUM CHLORIDE 0.9% 500 ML INFUS.BAG IV ONE (16:43)
[2023-08-31] MEDS: ACETAMINOPHEN 1000 MG/100 ML BAG IVPB ONE (16:43)
[2023-08-31 16:53] LABS: CALCIUM 9.9 mg/dL (8.5-10.1)
[2023-08-31 16:54] LABS: ALBUMIN 3.7 g/dl (3.4-5.0); BLOOD UREA NITROGEN 11.2 mg/dL (7-18); MAGNESIUM 2.2 mg/dL (1.8-2.4)
[2023-08-31 16:57] LABS: CREATININE 0.7 mg/dL (0.55-1.3)
[2023-08-31 16:58] LABS: BILIRUBIN,TOTAL 0.5 mg/dL (0.2-1)
[2023-08-31 16:59] LABS: TOT PROT 7.5 g/dl (6.4-8.2)
[2023-08-31 22:00] VITALS: BP 125/73; PULSE 73; RESP 16; TEMP 98.4
== END 2023-08-31 22:16 | disposition short-term general hospital (02) ==
LOC: JER 15:02
PROC: 3E033NZ Introduction of Analgesics, Hypnotics, Sedatives into Peripheral Vein, Percutaneous Approach (ICD-10-PCS; principal; 2023-08-31)
PROC: 3E033GC Introduction of Other Therapeutic Substance into Peripheral Vein, Percutaneous Approach (ICD-10-PCS; 2023-08-31)
DX: I67.1 Cerebral aneurysm, nonruptured (principal); R51.9 Headache, unspecified; R10.84 Generalized abdominal pain; M25.561 Pain in right knee; M25.562 Pain in left knee; K59.09 Other constipation; R26.2 Difficulty in walking, not elsewhere classified
CPT/HCPCS: 36415; 70450-TC; 70496-TC; 70498-TC; 73564-TC-LT-FY; 73564-TC-RT-FY; 74176-TC; 80053; 81003; 83690; 83735; 84484; 85025; 85651; 86140; 87077; 87086; 93005; 93010; 99285-25; J0131

== ENCOUNTER 2024-09-02 02:54 | Emergency (ER) | payer OTHER ==
[2024-09-02 03:44] VITALS: TEMP 98.8; BMI 29.2
[2024-09-02] MEDS ORDERED: ACETAMINOPHEN INJECTION 100 ML ONE (04:09)
[2024-09-02] MEDS: ACETAMINOPHEN 1000 MG/100 ML BAG IVPB ONE (04:15)
[2024-09-02] MEDS: SODIUM CHLORIDE 0.9% 500 ML INFUS.BAG IV ONE (04:15)
[2024-09-02 04:25] LABS: ABSOLUTE IMMATURE GRANULOCYTES 0.01 x10^3/uL (0.0-0.031); BASOPHILS # 0.04 x10^3/uL (0.01-0.08); EOSINOPHILS # 0.15 x10^3/uL (0.04-0.36); HEMATOCRIT 39.7 % (34.1-44.9); HEMOGLOBIN 12.6 g/dL (11.2-15.7); MCHC 31.7 g/dl (32.2-35.5); MEAN CELL VOLUME 79.1 fl (79.4-94.8); MEAN PLT VOLUME 10.9 fl (9.4-12.3); MONOCYTE # 0.99 x10^3/uL (0.24-0.86); MONOCYTE % 13.3 % (4.7-12.5); PLATELET COUNT 206 x10^3/uL (182-369); RDW 15.6 % (12.5-17.0)
[2024-09-02 04:47] LABS: POTASSIUM 4.3 mmol/L (3.5-5.1)
[2024-09-02 04:49] LABS: ALBUMIN 3.4 g/dl (3.4-5.0); CALCIUM 9.9 mg/dL (8.5-10.1)
[2024-09-02 04:50] LABS: BLOOD UREA NITROGEN 13.3 mg/dL (7-18)
[2024-09-02 04:54] LABS: BILIRUBIN,TOTAL 0.4 mg/dL (0.2-1)
[2024-09-02 05:00] LABS: PH,URINE 7.5 (5.0-8.0); URINE APPEARANCE CLOUDY; URINE BILIRUBIN NEGATIVE (NEGATIVE); URINE COLOR YELLOW; URINE GLUCOSE (UA) NEGATIVE (NEGATIVE); URINE KETONE NEGATIVE (NEGATIVE); URINE LEUK ESTERASE NEGATIVE (NEGATIVE); URINE NITRITE NEGATIVE (NEGATIVE); URINE PROTEIN NEGATIVE (NEGATIVE); URINE UROBILINOGEN 0.2 mg/dL (0.2-1.0)
[2024-09-02 06:07] VITALS: BP 136/74; PULSE 58; RESP 18
== END 2024-09-02 06:08 | disposition home or self-care (01) ==
LOC: JER 02:54
PROC: 3E033NZ Introduction of Analgesics, Hypnotics, Sedatives into Peripheral Vein, Percutaneous Approach (ICD-10-PCS; principal; 2024-09-02)
DX: R51.9 Headache, unspecified (principal); R10.84 Generalized abdominal pain; R50.9 Fever, unspecified
CPT/HCPCS: 0241U-QW; 36415; 80053; 81003; 83690; 84484; 85025; 87086; 93005; 93010; 99284-25; J0131